=== PATIENT | male | born 1950 | race Caucasian/White ===

== ENCOUNTER → 2021-01-07 | Outpatient (CLI) | payer OTHER ==
[~2021-01-07] MED LIST: ASPIR 8181 MG PO; COREG6.25 MG PO; FLONASE 0.05% N16 GM; HYDROCODON-ACE1 EAC6 PO; IBU600 MG PO; LEVOCETIRIZINE D5 MG PO; LISINOPRIL40 MG PO; NAPROSYN500 MG PO; NEURONTIN400 MG PO; NORVASC10 MG PO; SYMBICORT 16010.2 GM INH; TIZANIDINE HCL2 MG PO; XYZAL5 MG PO; ZANTAC150 MG PO; ZESTRIL40 MG PO
[2021-01-07 13:23] LABS: HEMOGLOBIN 15.2 gm/dl (14.0-17.5); RED BLOOD COUNT 4.91 M/UL (4.20-5.50); WHITE BLOOD COUNT 7.9 K/UL (4.5-11.0)
[2021-01-07 14:02] LABS: BUN/CREATININE RATIO 10 (0-10)
== END ==
LOC: OPSV2 12:22
PROVIDERS: Anesthesiology Pain Medicine
DX: Z01.818 Encounter for other preprocedural examination (principal); Z01.812 Encounter for preprocedural laboratory examination; Z01.810 Encounter for preprocedural cardiovascular examination; R91.8 Other nonspecific abnormal finding of lung field
CPT/HCPCS: 36415; 71046; 80048; 85025; 93005

== ENCOUNTER → 2021-01-08 | Day surgery (SDC) | payer OTHER | END | disposition home or self-care (01) | LOC: OR 06:00 | DX: M96.1 Postlaminectomy syndrome, not elsewhere classified (principal); M54.16 Radiculopathy, lumbar region; G89.29 Other chronic pain; M16.12 Unilateral primary osteoarthritis, left hip; I10 Essential (primary) hypertension; F41.8 Other specified anxiety disorders; E78.5 Hyperlipidemia, unspecified; G47.30 Sleep apnea, unspecified; K21.9 Gastro-esophageal reflux disease without esophagitis; Z79.899 Other long term (current) drug therapy; Z20.822 Contact with and (suspected) exposure to COVID-19 | CPT/HCPCS: 72070; 76000; C1767; C1778; C1787; C1820; J0690; J1100; J2250; J2405; J2704; J3010; J3370; J7030; J7120 ==

== ENCOUNTER → 2021-08-19 | Outpatient (CLI) | payer MEDICARE, OTHER | LOC: KOH-I 08:35 | DX: R91.8 Other nonspecific abnormal finding of lung field (principal) | CPT/HCPCS: 71250 ==

== ENCOUNTER → 2021-09-06 | Day surgery (SDC) | payer MEDICARE, OTHER ==
[~2021-09-06] MED LIST changes: +HYDROCODONE BIT10 MG PO
[2021-09-06 10:02] LABS: BUN/CREATININE RATIO 10 (0-10)
[2021-09-07 12:14] LABS: HCV AB <0.1 (0.0-0.9)
== END | disposition home or self-care (01) ==
LOC: OR 06:10
PROVIDERS: Family Medicine
DX: Z12.11 Encounter for screening for malignant neoplasm of colon (principal); D12.8 Benign neoplasm of rectum; J44.9 Chronic obstructive pulmonary disease, unspecified; N40.0 Benign prostatic hyperplasia without lower urinary tract symptoms; K59.09 Other constipation; G89.29 Other chronic pain; M54.50 Low back pain, unspecified; K21.9 Gastro-esophageal reflux disease without esophagitis; I10 Essential (primary) hypertension; E78.5 Hyperlipidemia, unspecified; E66.9 Obesity, unspecified; Z68.33 Body mass index [BMI] 33.0-33.9, adult; Z20.822 Contact with and (suspected) exposure to COVID-19; F17.210 Nicotine dependence, cigarettes, uncomplicated
CPT/HCPCS: 36415; 80053; 80061; 82565; 84153; 86803; J2001; J2704; J7120

== ENCOUNTER → 2021-12-29 | Outpatient (CLI) | payer OTHER, MEDICARE | LOC: CT 09:33 | DX: M51.16 Intervertebral disc disorders with radiculopathy, lumbar region (principal); M96.1 Postlaminectomy syndrome, not elsewhere classified; M43.26 Fusion of spine, lumbar region; M51.36 Other intervertebral disc degeneration, lumbar region; Z97.8 Presence of other specified devices | CPT/HCPCS: 72131 ==